=== PATIENT | female | born 1950 | race African-American/Black ===

== ENCOUNTER 2020-11-21 17:04 | Inpatient (IN) | payer BC, OTHER ==
[2020-11-21] MEDS ORDERED: ACETAMINOPHEN 1000 MG/100 ML VIAL (NON FORMULARY) IVPB ONE (17:58)
[2020-11-21] MEDS ORDERED: ASPIRIN 81 MG CHEWABLE TABLETS PO ONE (17:58)
[2020-11-21] MEDS ORDERED: SODIUM CHLORIDE 0.9% 500 ML INFUS.BAG IV ONE (17:58)
[2020-11-21] MEDS ORDERED: ACETAMINOPHEN INJECTION 100 ML IVPB ONE (18:23)
[2020-11-21] MEDS ORDERED: ASPIRIN 81 MG CHEWABLE TABLETS ONE (18:23)
[2020-11-21 19:03] LABS: BASO % 0.5 % (0-2.0); EOS % 0.1 % (0-4.5); HEMOGLOBIN 10.7 GM/dL (10.7-15.3); LYMPH % 26.3 % (8-40); MCH 29.5 pg (25.7-33.7); MCHC 32.3 g/dl (32.0-36.0); MEAN CELL VOLUME 91.2 fl (80-96); MEAN PLT VOLUME 9.9 fl (7.5-11.1); MONO % 13.6 % (3.8-10.2); NEUT % 59.5 % (42.8-82.8); PLATELET COUNT 161 K/MM3 (134-434); RBC 3.62 M/mm3 (3.60-5.2); WHITE BLOOD COUNT 5.4 K/mm3 (4.0-10.0)
[2020-11-21 19:20] LABS: CHLORIDE 106 mmol/L (98-107); POTASSIUM 5.2 mmol/L (3.5-5.1); SODIUM 138 mmol/L (136-145)
[2020-11-21 19:22] LABS: CALCIUM 8.5 mg/dL (8.5-10.1)
[2020-11-21 19:23] LABS: ALBUMIN 3.7 g/dl (3.4-5.0); ANION GAP 3 MMOL/L (8-16); CO2 30 mmol/L (21-32); GLUCOSE,RANDOM 178 mg/dL (74-106); LIPASE 151 U/L (73-393)
[2020-11-21 19:26] LABS: CREATININE 1.7 mg/dL (0.55-1.3); SGOT/AST 50 U/L (15-37); SGPT/ALT 26 U/L (13-61)
[2020-11-21 19:27] LABS: BILIRUBIN,TOTAL 0.5 mg/dL (0.2-1)
[2020-11-21 19:29] LABS: ALK PHOS 54 U/L (45-117)
[2020-11-21 20:30] LABS: EPI CELLS 24 /uL (0-25.1); HYALINE CASTS 1 /uL (0-3.1); URINE APPEARANCE CLEAR; URINE BACTERIA 362 /uL (0-1359); URINE BILIRUBIN NEGATIVE (NEGATIVE); URINE COLOR YELLOW; URINE GLUCOSE (UA) NEGATIVE (NEGATIVE); URINE KETONE TRACE (NEGATIVE); URINE LEUK ESTERASE TRACE (NEGATIVE); URINE NITRITE NEGATIVE (NEGATIVE); URINE PROTEIN 3+ (NEGATIVE); URINE RBC 12 /uL (0-23.9); URINE WBC 23 /uL (0-25.8)
[2020-11-22] MEDS ORDERED: SODIUM CHLORIDE 1,000 ML IV SCH ×2 (00:30→06:56)
[2020-11-22] MEDS ORDERED: HEPARIN NA (PORCINE) 5,000 UNITS/ML 1ML VIAL SQ SCH (02:00)
[2020-11-22] MEDS ORDERED: HEPARIN NA (PORCINE) 5,000 UNITS/ML 1ML VIAL ONE (02:28)
[2020-11-22 04:42] VITALS: BMI 32.8
[2020-11-22] MEDS: INSULIN SLIDING SCALE (NOVOLOG) 1 VIAL SQ SCH ×4 (06:37→21:50)
[2020-11-22] MEDS ORDERED: SODIUM CHLORIDE 500 ML IV STA (06:55)
[2020-11-22 09:13] LABS: BASO % 0.4 % (0-2.0); EOS % 0.1 % (0-4.5); HEMATOCRIT 31.3 % (32.4-45.2); HEMOGLOBIN 10.3 GM/dL (10.7-15.3); LYMPH % 36.2 % (8-40); MCH 30.1 pg (25.7-33.7); MEAN CELL VOLUME 91.2 fl (80-96); MONO % 13.3 % (3.8-10.2); PLATELET COUNT 139 K/MM3 (134-434); RBC 3.43 M/mm3 (3.60-5.2); RDW 14.1 % (11.6-15.6); WHITE BLOOD COUNT 4.4 K/mm3 (4.0-10.0)
[2020-11-22 09:32] LABS: CALCIUM 8.5 mg/dL (8.5-10.1)
[2020-11-22 09:33] LABS: ALBUMIN 3.4 g/dl (3.4-5.0); BLOOD UREA NITROGEN 22.4 mg/dL (7-18)
[2020-11-22 09:36] LABS: CREATININE 1.4 mg/dL (0.55-1.3); PHOSPHOROUS 3.7 mg/dL (2.5-4.9)
[2020-11-22 09:38] LABS: BILIRUBIN,TOTAL 0.4 mg/dL (0.2-1); TOT PROT 7.4 g/dl (6.4-8.2)
[2020-11-22] MEDS ORDERED: DEXAMETHASONE SOD PHOSPHATE 4 MG/1 ML VIAL IVPUSH SCH (10:00)
[2020-11-22] MEDS ORDERED: CEFTRIAXONE 1 GM in DEXTROSE 5%-WATER - 50 ML IVPB SCH (10:00)
[2020-11-22] MEDS ORDERED: cefTRIAXone SODIUM 1 GM VIAL ONE (10:47)
[2020-11-22] MEDS ORDERED: DEXTROSE 5%-WATER - 50 ML IVPB ONE (10:47)
[2020-11-22] MEDS ORDERED: PT OWN MED DRAWER 7, Y5N ONE (10:48)
[2020-11-22] MEDS: HEPARIN NA (PORCINE) 5,000 UNITS/ML 1ML VIAL SQ SCH ×3 (10:55→21:50)
[2020-11-22] MEDS: ZINC SULFATE 220 MG CAPSULE (FP) PO SCH (10:56)
[2020-11-22] MEDS: CHOLECALCIFEROL (VIT D3) 1,000 UNIT (25 MCG) TABLET PO SCH (10:56)
[2020-11-22] MEDS: ASCORBIC ACID 500 MG TABLET (FP) PO SCH ×2 (10:56→21:51)
[2020-11-22] MEDS: FAMOTIDINE 20 MG/50 ML IVPB 20 MG/50 ML MG IVPB SCH ×2 (10:59→21:51)
[2020-11-22] MEDS ORDERED: INSULIN (NOVOLOG) ASPART 100 UNITS/ML 10ML VIAL ONE ×2 (14:36→14:37)
[2020-11-22] MEDS ORDERED: SODIUM CHLORIDE 0.45% 1,000 ML IV SCH (15:45)
[2020-11-22] MEDS: ACETAMINOPHEN 325 MG TABLET (FP) PO PRN (22:26)
[2020-11-23] MEDS: HEPARIN NA (PORCINE) 5,000 UNITS/ML 1ML VIAL SQ SCH ×3 (06:25→21:06)
[2020-11-23] MEDS: INSULIN SLIDING SCALE (NOVOLOG) 1 VIAL SQ SCH ×4 (06:26→21:12)
[2020-11-23 07:57] LABS: BASO % 0.3 % (0-2.0); EOS % 0.1 % (0-4.5); HEMATOCRIT 30.8 % (32.4-45.2); HEMOGLOBIN 10.1 GM/dL (10.7-15.3); LYMPH % 51.9 % (8-40); MCH 29.7 pg (25.7-33.7); MCHC 32.6 g/dl (32.0-36.0); MONO % 9.8 % (3.8-10.2); NEUT % 37.9 % (42.8-82.8); PLATELET COUNT 136 K/MM3 (134-434); RBC 3.38 M/mm3 (3.60-5.2); RDW 14.2 % (11.6-15.6); WHITE BLOOD COUNT 4.9 K/mm3 (4.0-10.0)
[2020-11-23] MEDS: FAMOTIDINE 20 MG/50 ML IVPB 20 MG/50 ML MG IVPB SCH ×2 (10:03→21:51)
[2020-11-23] MEDS: ASCORBIC ACID 500 MG TABLET (FP) PO SCH ×2 (10:04→21:06)
[2020-11-23] MEDS: ZINC SULFATE 220 MG CAPSULE (FP) PO SCH (10:04)
[2020-11-23] MEDS: CHOLECALCIFEROL (VIT D3) 1,000 UNIT (25 MCG) TABLET PO SCH (10:04)
[2020-11-23 10:34] LABS: BLOOD UREA NITROGEN 25.7 mg/dL (7-18); CALCIUM 8.2 mg/dL (8.5-10.1)
[2020-11-23 10:37] LABS: CREATININE 1.5 mg/dL (0.55-1.3); PHOSPHOROUS 4.2 mg/dL (2.5-4.9)
[2020-11-23 10:38] LABS: BILIRUBIN,TOTAL 0.4 mg/dL (0.2-1)
[2020-11-23] MEDS: ACETAMINOPHEN 325 MG TABLET (FP) PO PRN ×2 (15:10→20:19)
[2020-11-23] MEDS: SODIUM CHLORIDE 0.45% 1,000 ML IV SCH (15:10)
[2020-11-23 20:48] LABS: EPI CELLS 3 /uL (0-25.1); HYALINE CASTS 1 /uL (0-3.1); URINE APPEARANCE CLEAR; URINE BACTERIA 24 /uL (0-1359); URINE BILIRUBIN NEGATIVE (NEGATIVE); URINE COLOR YELLOW; URINE GLUCOSE (UA) NEGATIVE (NEGATIVE); URINE KETONE NEGATIVE (NEGATIVE); URINE LEUK ESTERASE NEGATIVE (NEGATIVE); URINE NITRITE NEGATIVE (NEGATIVE); URINE PROTEIN 2+ (NEGATIVE); URINE RBC 9 /uL (0-23.9); URINE UROBILINOGEN 0.2 mg/dL (0.2-1.0); URINE WBC 3 /uL (0-25.8)
[2020-11-24] MEDS: HEPARIN NA (PORCINE) 5,000 UNITS/ML 1ML VIAL SQ SCH ×3 (05:05→21:02)
[2020-11-24] MEDS: ACETAMINOPHEN 325 MG TABLET (FP) PO PRN (06:09)
[2020-11-24] MEDS: INSULIN SLIDING SCALE (NOVOLOG) 1 VIAL SQ SCH ×4 (06:16→21:00)
[2020-11-24] MEDS ORDERED: PT OWN MED DRAWER 7, Y5N ONE ×4 (09:21→22:41)
[2020-11-24] MEDS: ZINC SULFATE 220 MG CAPSULE (FP) PO SCH (09:24)
[2020-11-24] MEDS: FAMOTIDINE 20 MG/50 ML IVPB 20 MG/50 ML MG IVPB SCH ×2 (09:25→21:02)
[2020-11-24] MEDS: ASCORBIC ACID 500 MG TABLET (FP) PO SCH ×2 (09:25→21:04)
[2020-11-24] MEDS: CHOLECALCIFEROL (VIT D3) 1,000 UNIT (25 MCG) TABLET PO SCH (09:25)
[2020-11-24] MEDS: DEXAMETHASONE SOD PHOSPHATE 4 MG/1 ML VIAL IVPUSH SCH (11:15)
[2020-11-24 17:21] LABS: BLOOD UREA NITROGEN 23.6 mg/dL (7-18); CALCIUM 7.9 mg/dL (8.5-10.1); CREATININE 1.6 mg/dL (0.55-1.3); POTASSIUM 5.2 mmol/L (3.5-5.1)
[2020-11-24] MEDS: SODIUM CHLORIDE 0.45% 1,000 ML IV SCH ×2 (17:39→17:40)
[2020-11-24] MEDS ORDERED: SODIUM ZIRCONIUM CYCLOSILICATE (LOKELMA) 5 GM PACKET PO ONE (17:42)
[2020-11-24] MEDS ORDERED: INSULIN (NOVOLOG) ASPART 100 UNITS/ML 10ML VIAL ONE ×2 (17:43→20:23)
[2020-11-24] MEDS ORDERED: guaiFENesin/D-M SUGAR-FREE/ACLHOL-FREE 118 ML BOTTLE PO PRN (21:42)
[2020-11-24] MEDS ORDERED: BENZOCAINE/MENTH/CETYLPYRD CL 1 EACH LOZENGE MM PRN (21:42)
[2020-11-25] MEDS: INSULIN SLIDING SCALE (NOVOLOG) 1 VIAL SQ SCH ×3 (06:22→16:21)
[2020-11-25] MEDS: HEPARIN NA (PORCINE) 5,000 UNITS/ML 1ML VIAL SQ SCH ×2 (06:23→14:19)
[2020-11-25] MEDS ORDERED: PT OWN MED DRAWER 7, Y5N ONE (09:05)
[2020-11-25] MEDS: ACETAMINOPHEN 325 MG TABLET (FP) PO PRN (09:08)
[2020-11-25] MEDS: ASCORBIC ACID 500 MG TABLET (FP) PO SCH (09:09)
[2020-11-25] MEDS: FAMOTIDINE 20 MG/50 ML IVPB 20 MG/50 ML MG IVPB SCH (09:09)
[2020-11-25] MEDS: CHOLECALCIFEROL (VIT D3) 1,000 UNIT (25 MCG) TABLET PO SCH (09:09)
[2020-11-25] MEDS: ZINC SULFATE 220 MG CAPSULE (FP) PO SCH (09:09)
[2020-11-25] MEDS: DEXAMETHASONE SOD PHOSPHATE 4 MG/1 ML VIAL IVPUSH SCH (09:10)
[2020-11-25] MEDS ORDERED: BUDESONIDE/FORMETEROL FUMARATE 160/4.5 mcg INHALER IH SCH (10:45)
[2020-11-25] MEDS: ALBUTEROL SO4 HFA INHALER IH SCH ×2 (11:37→16:14)
[2020-11-25 13:32] LABS: BLOOD UREA NITROGEN 22.7 mg/dL (7-18); CALCIUM 8.4 mg/dL (8.5-10.1); CREATININE 1.4 mg/dL (0.55-1.3); POTASSIUM 4.8 mmol/L (3.5-5.1)
[2020-11-25 15:47] VITALS: BP 130/65; PULSE 72; TEMP 98.1
[2020-11-25] MEDS: SODIUM CHLORIDE 0.45% 1,000 ML IV SCH (16:50)
[2020-11-25] MEDS ORDERED: SODIUM ZIRCONIUM CYCLOSILICATE (LOKELMA) 5 GM PACKET PO ONE (17:49)
== END 2020-11-25 17:48 | disposition home or self-care (01) | DRG 177 ==
LOC: JER 17:04 → JERBED 21:43 → OBSVTOIN 11-22 00:20 → J8W 11-22 04:05
PROVIDERS: ADMIT Internal Medicine; ATTEND Internal Medicine
DX: U07.1 COVID-19 (principal); J12.82 Pneumonia due to coronavirus disease 2019; N17.9 Acute kidney failure, unspecified; K21.9 Gastro-esophageal reflux disease without esophagitis; I12.9 Hypertensive chronic kidney disease with stage 1 through stage 4 chronic kidney disease, or unspecified chronic kidney disease; E11.22 Type 2 diabetes mellitus with diabetic chronic kidney disease; N18.9 Chronic kidney disease, unspecified; S46.812A Strain of other muscles, fascia and tendons at shoulder and upper arm level, left arm, initial encounter; E66.9 Obesity, unspecified; Z68.32 Body mass index [BMI] 32.0-32.9, adult; Z79.84 Long term (current) use of oral hypoglycemic drugs; E78.5 Hyperlipidemia, unspecified; E86.0 Dehydration; E87.5 Hyperkalemia; F32.9 Major depressive disorder, single episode, unspecified; X50.9XXA Other and unspecified overexertion or strenuous movements or postures, initial encounter; Y93.89 Activity, other specified; Y92.098 Other place in other non-institutional residence as the place of occurrence of the external cause; Y99.8 Other external cause status; R07.89 Other chest pain
CPT/HCPCS: 36415; 71045-TC-FY; 74176-TC; 76775-TC; 80048; 80053; 81003; 82550; 82565; 82728; 82962; 83605; 83615; 83690; 83735; 84100; 84156; 84484; 85025; 85379; 86140; 86769; 87040; 87086; 93970-TC; 94761; 99285-25; C9803; G0378; J0131; J1644; U0003

== ENCOUNTER 2020-11-29 17:25 | Inpatient (IN) | payer BC, OTHER ==
[2020-11-29 17:47] VITALS: BMI 32.5
[2020-11-29] MEDS ORDERED: SODIUM CHLORIDE 0.9% 500 ML INFUS.BAG IV ONE ×2 (18:08→20:54)
[2020-11-29] MEDS ORDERED: DEXAMETHASONE SOD PHOSPHATE 10 MG/1 ML VIAL IVPUSH ONE (18:11)
[2020-11-29] MEDS ORDERED: DEXAMETHASONE SOD PHOSPHATE 10 MG/1 ML VIAL ONE (18:22)
[2020-11-29 18:49] LABS: VENOUS BASE EXCESS -4.7 mmol/L (-2-2); VENOUS O2 SATURATION 26.4 % (70-80); VENOUS PCO2 47.6 mmHg (38-52); VENOUS PH 7.285 (7.310-7.410)
[2020-11-29 19:03] LABS: BASO % 0.8 % (0-2.0); HEMOGLOBIN 12.2 GM/dL (10.7-15.3); LYMPH % 9.5 % (8-40); MCH 29.5 pg (25.7-33.7); MCHC 32.1 g/dl (32.0-36.0); MEAN CELL VOLUME 91.9 fl (80-96); MEAN PLT VOLUME 11.8 fl (7.5-11.1); NEUT % 82.7 % (42.8-82.8); PLATELET COUNT 493 K/MM3 (134-434); RBC 4.14 M/mm3 (3.60-5.2); RDW 15.2 % (11.6-15.6); WHITE BLOOD COUNT 11.7 K/mm3 (4.0-10.0)
[2020-11-29 19:04] LABS: INR 1.01 (0.83-1.09); PROTHROMBIN TIME (PATIENT) 12.2 SEC (9.7-13.0)
[2020-11-29 19:06] LABS: ACTIVATED PTT 24.6 SECONDS (25.2-36.5)
[2020-11-29 19:12] LABS: CHLORIDE 98 mmol/L (98-107); SODIUM 132 mmol/L (136-145)
[2020-11-29 19:14] LABS: CALCIUM 9.3 mg/dL (8.5-10.1)
[2020-11-29 19:15] LABS: CO2 23 mmol/L (21-32)
[2020-11-29 19:18] LABS: SGOT/AST 25 U/L (15-37); SGPT/ALT 14 U/L (13-61)
[2020-11-29 19:19] LABS: BILIRUBIN,TOTAL 0.7 mg/dL (0.2-1)
[2020-11-29 19:21] LABS: ALK PHOS 60 U/L (45-117)
[2020-11-29 19:26] LABS: ANION GAP 10 MMOL/L (8-16); BLOOD UREA NITROGEN 54.9 mg/dL (7-18)
[2020-11-29 19:28] LABS: GLUCOSE,RANDOM 630 mg/dL (74-106)
[2020-11-29] MEDS ORDERED: INSULIN REGULAR HUMAN 100 UNITS/ML *VIAL SQ ONE ×3 (19:36→23:39)
[2020-11-29 20:25] LABS: CALCIUM 9.2 mg/dL (8.5-10.1)
[2020-11-29 20:26] LABS: ALBUMIN 2.8 g/dl (3.4-5.0); BLOOD UREA NITROGEN 53.4 mg/dL (7-18)
[2020-11-29 20:29] LABS: CREATININE 1.9 mg/dL (0.55-1.3)
[2020-11-29 20:30] LABS: BILIRUBIN,TOTAL 0.6 mg/dL (0.2-1); TOT PROT 8.4 g/dl (6.4-8.2)
[2020-11-29 20:36] LABS: POTASSIUM 6.8 mmol/L (3.5-5.1)
[2020-11-29] MEDS ORDERED: CALCIUM GLUCONATE 10% - 1,000 MG/10 ML VIAL IVPB ONE ×2 (20:54→23:39)
[2020-11-29] MEDS ORDERED: FUROSEMIDE 40 MG/4 ML INJECTABLE VIAL IVPUSH ONE (20:54)
[2020-11-29] MEDS ORDERED: SODIUM ZIRCONIUM CYCLOSILICATE (LOKELMA) 5 GM PACKET PO ONE (20:55)
[2020-11-29] MEDS ORDERED: ALBUTEROL SO4 0.083% IH SOL 2.5 MG/3 ML VIAL.NEB. NEB ONE ×2 (20:55→21:42)
[2020-11-29 21:00] LABS: EPI CELLS 16 /uL (0-25.1); HYALINE CASTS 1 /uL (0-3.1); URINE APPEARANCE CLEAR; URINE BACTERIA 150 /uL (0-1359); URINE BILIRUBIN NEGATIVE (NEGATIVE); URINE COLOR YELLOW; URINE GLUCOSE (UA) 3+ (NEGATIVE); URINE KETONE NEGATIVE (NEGATIVE); URINE LEUK ESTERASE NEGATIVE (NEGATIVE); URINE NITRITE NEGATIVE (NEGATIVE); URINE PROTEIN 3+ (NEGATIVE); URINE RBC 21 /uL (0-23.9); URINE UROBILINOGEN 0.2 mg/dL (0.2-1.0); URINE WBC 4 /uL (0-25.8)
[2020-11-29] MEDS ORDERED: SODIUM ZIRCONIUM CYCLOSILICATE (LOKELMA) 5 GM PACKET ONE (21:43)
[2020-11-29] MEDS ORDERED: FUROSEMIDE 40 MG/4 ML INJECTABLE VIAL ONE (21:43)
[2020-11-29] MEDS ORDERED: CALCIUM GLUC IN NACL, ISO-OSM 1 GM/50 ML BAG IVPB ONE (21:43)
[2020-11-29] MEDS ORDERED: INSULIN REGULAR HUMAN 100 UNITS/ML *VIAL ONE (21:57)
[2020-11-29] MEDS ORDERED: DEXTROSE 50%-WATER - 25 GM/50 ML VIAL IVPUSH ONE (23:40)
[2020-11-30] MEDS ORDERED: LABETALOL HCL 5 MG/1 ML (100MG/20 ML VIAL) IVPUSH PRN (00:26)
[2020-11-30] MEDS ORDERED: FAMOTIDINE 20 MG TABLET PO SCH (00:45)
[2020-11-30] MEDS ORDERED: INSULIN REGULAR HUMAN 100 UNITS/ML *VIAL SQ ONE (03:03)
[2020-11-30] MEDS ORDERED: INSULIN REGULAR HUMAN 100 UNITS/ML *VIAL IVPUSH ONE ×2 (03:03→10:00)
[2020-11-30] MEDS ORDERED: DEXTROSE 50%-WATER - 25 GM/50 ML VIAL IVPUSH ONE ×2 (03:04→10:00)
[2020-11-30] MEDS ORDERED: CALCIUM GLUCONATE IN NACL 1 GM/50 ML BAG IVPB ONE ×2 (03:04→10:00)
[2020-11-30] MEDS ORDERED: SODIUM ZIRCONIUM CYCLOSILICATE (LOKELMA) 5 GM PACKET PO ONE (03:06)
[2020-11-30] MEDS ORDERED: SODIUM ZIRCONIUM CYCLOSILICATE (LOKELMA) 5 GM PACKET ONE ×2 (03:13→10:17)
[2020-11-30] MEDS ORDERED: DEXTROSE 50%-WATER 25 GM/50 ML DISP.SYRIN ONE (03:13)
[2020-11-30] MEDS ORDERED: CALCIUM GLUC IN NACL, ISO-OSM 1 GM/50 ML BAG IVPB ONE ×2 (03:13→10:16)
[2020-11-30] MEDS: HEPARIN NA (PORCINE) 5,000 UNITS/ML 1ML VIAL SQ SCH ×3 (06:07→22:44)
[2020-11-30] MEDS ORDERED: HEPARIN NA (PORCINE) 5,000 UNITS/ML 1ML VIAL ONE ×2 (06:11→14:27)
[2020-11-30 06:46] LABS: BASO % 0.4 % (0-2.0); EOS % 0.1 % (0-4.5); HEMATOCRIT 36.6 % (32.4-45.2); HEMOGLOBIN 12.1 GM/dL (10.7-15.3); LYMPH % 10.5 % (8-40); MCH 29.8 pg (25.7-33.7); MCHC 33.1 g/dl (32.0-36.0); MEAN CELL VOLUME 90.2 fl (80-96); MEAN PLT VOLUME 10.5 fl (7.5-11.1); MONO % 8.2 % (3.8-10.2); NEUT % 80.8 % (42.8-82.8); PLATELET COUNT 429 K/MM3 (134-434); RBC 4.06 M/mm3 (3.60-5.2); RDW 14.5 % (11.6-15.6); WHITE BLOOD COUNT 9.2 K/mm3 (4.0-10.0)
[2020-11-30] MEDS ORDERED: INSULIN SLIDING SCALE (NOVOLOG) 1 VIAL SQ SCH ×2 (07:00→09:45)
[2020-11-30 07:19] LABS: ALBUMIN 2.8 g/dl (3.4-5.0); BILIRUBIN,TOTAL 0.6 mg/dL (0.2-1); CALCIUM 9.5 mg/dL (8.5-10.1); CREATININE 1.9 mg/dL (0.55-1.3); MAGNESIUM 2.8 mg/dL (1.8-2.4); PHOSPHOROUS 5.9 mg/dL (2.5-4.9); TOT PROT 8.6 g/dl (6.4-8.2)
[2020-11-30 07:44] LABS: POTASSIUM 6.5 mmol/L (3.5-5.1)
[2020-11-30 08:35] LABS: INR 1.02 (0.83-1.09); PROTHROMBIN TIME (PATIENT) 12.5 SEC (9.7-13.0)
[2020-11-30] MEDS ORDERED: amLODIPine BESYLATE 5 MG TABLET (FP) ONE (09:27)
[2020-11-30] MEDS ORDERED: FAMOTIDINE 20 MG TABLET ONE (09:27)
[2020-11-30] MEDS ORDERED: DEXAMETHASONE SOD PHOSPHATE 4 MG/1 ML VIAL ONE (09:27)
[2020-11-30] MEDS ORDERED: ESCITALOPRAM OXALATE 10 MG TABLET ONE (09:27)
[2020-11-30] MEDS ORDERED: FUROSEMIDE 40 MG/4 ML INJECTABLE VIAL IVPUSH ONE (09:29)
[2020-11-30] MEDS ORDERED: CALCIUM CHLORIDE 10% 1 GM/10 ML *VIAL IVPUSH ONE (09:30)
[2020-11-30 09:54] LABS: ANISOCYTOSIS 1+; MACROCYTOSIS 0; OVALOCYTE 1+; PLATELET ESTIMATE NORMAL
[2020-11-30] MEDS ORDERED: SODIUM ZIRCONIUM CYCLOSILICATE (LOKELMA) 5 GM PACKET PO SCH (10:00)
[2020-11-30] MEDS ORDERED: DEXTROSE 50%-WATER - 25 GM/50 ML VIAL ONE (10:16)
[2020-11-30] MEDS ORDERED: FUROSEMIDE 40 MG/4 ML INJECTABLE VIAL ONE (10:17)
[2020-11-30] MEDS: DEXAMETHASONE SOD PHOSPHATE 10 MG/1 ML VIAL IVPUSH SCH (10:55)
[2020-11-30] MEDS: ESCITALOPRAM OXALATE 10 MG TABLET PO SCH (10:55)
[2020-11-30] MEDS: amLODIPine BESYLATE 5 MG TABLET (FP) PO SCH (10:55)
[2020-11-30] MEDS: FAMOTIDINE 20 MG TABLET PO SCH (10:55)
[2020-11-30] MEDS ORDERED: INSULIN (NOVOLOG) ASPART 100 UNITS/ML 10ML VIAL SQ ONE ×2 (12:16→14:38)
[2020-11-30] MEDS: INSULIN SLIDING SCALE (NOVOLOG) 1 VIAL SQ SCH ×2 (12:21→19:41)
[2020-11-30] MEDS ORDERED: ALBUTEROL SO4 HFA INHALER IH PRN (12:26)
[2020-11-30] MEDS: BUDESONIDE/FORMETEROL FUMARATE 80/4.5 mcg INHALER IH SCH ×2 (13:06→22:45)
[2020-11-30 15:38] LABS: POTASSIUM 5.8 mmol/L (3.5-5.1)
[2020-11-30 15:39] LABS: BLOOD UREA NITROGEN 53.9 mg/dL (7-18); CALCIUM 9.8 mg/dL (8.5-10.1)
[2020-11-30 15:42] LABS: CREATININE 1.5 mg/dL (0.55-1.3)
[2020-11-30] MEDS ORDERED: TOCILIZUMAB (ACTEMRA) 200 MG/10 ML VIAL IVPB ONE ×2 (16:45)
[2020-11-30] MEDS ORDERED: SODIUM CHLORIDE IVPB ONE (17:15)
[2020-11-30] MEDS ORDERED: TOCILIZUMAB IVPB ONE (17:15)
[2020-11-30] MEDS: SODIUM CHLORIDE 0.45% 1,000 ML IV SCH (17:55)
[2020-11-30 22:25] LABS: CALCIUM 9.7 mg/dL (8.5-10.1)
[2020-11-30 22:26] LABS: BLOOD UREA NITROGEN 56.1 mg/dL (7-18)
[2020-11-30 22:29] LABS: CREATININE 1.7 mg/dL (0.55-1.3)
[2020-11-30 22:38] LABS: POTASSIUM 6.2 mmol/L (3.5-5.1)
[2020-11-30] MEDS: SODIUM ZIRCONIUM CYCLOSILICATE (LOKELMA) 5 GM PACKET PO SCH (22:44)
[2020-11-30] MEDS: ASCORBIC ACID 500 MG TABLET (FP) PO SCH (22:45)
[2020-12-01] MEDS: INSULIN SLIDING SCALE (NOVOLOG) 1 VIAL SQ SCH ×4 (00:57→17:49)
[2020-12-01] MEDS: HEPARIN NA (PORCINE) 5,000 UNITS/ML 1ML VIAL SQ SCH ×3 (06:09→22:01)
[2020-12-01 10:39] LABS: BASO % 0.5 % (0-2.0); EOS % 0.2 % (0-4.5); HEMATOCRIT 36.9 % (32.4-45.2); HEMOGLOBIN 12.3 GM/dL (10.7-15.3); LYMPH % 19.5 % (8-40); MCH 29.8 pg (25.7-33.7); MCHC 33.4 g/dl (32.0-36.0); MEAN CELL VOLUME 89.2 fl (80-96); MONO % 4.5 % (3.8-10.2); NEUT % 75.3 % (42.8-82.8); PLATELET COUNT 488 K/MM3 (134-434); RBC 4.13 M/mm3 (3.60-5.2); RDW 14.2 % (11.6-15.6); WHITE BLOOD COUNT 9.3 K/mm3 (4.0-10.0)
[2020-12-01] MEDS: CHOLECALCIFEROL (VIT D3) 1,000 UNIT (25 MCG) TABLET PO SCH (10:44)
[2020-12-01] MEDS: DEXAMETHASONE SOD PHOSPHATE 10 MG/1 ML VIAL IVPUSH SCH (10:44)
[2020-12-01] MEDS: ZINC SULFATE 220 MG CAPSULE (FP) PO SCH (10:45)
[2020-12-01] MEDS: ASCORBIC ACID 500 MG TABLET (FP) PO SCH ×2 (10:45→22:03)
[2020-12-01] MEDS: amLODIPine BESYLATE 5 MG TABLET (FP) PO SCH (10:45)
[2020-12-01] MEDS: FAMOTIDINE 20 MG TABLET PO SCH (10:46)
[2020-12-01 11:07] LABS: POTASSIUM 5.4 mmol/L (3.5-5.1)
[2020-12-01] MEDS: BUDESONIDE/FORMETEROL FUMARATE 80/4.5 mcg INHALER IH SCH ×2 (11:12→22:02)
[2020-12-01 11:14] LABS: ALBUMIN 2.7 g/dl (3.4-5.0); CALCIUM 9.3 mg/dL (8.5-10.1)
[2020-12-01 11:15] LABS: MAGNESIUM 2.4 mg/dL (1.8-2.4)
[2020-12-01 11:18] LABS: CREATININE 1.5 mg/dL (0.55-1.3)
[2020-12-01 11:19] LABS: BILIRUBIN,TOTAL 0.6 mg/dL (0.2-1); TOT PROT 8.2 g/dl (6.4-8.2)
[2020-12-01] MEDS: SODIUM ZIRCONIUM CYCLOSILICATE (LOKELMA) 5 GM PACKET PO SCH ×2 (12:04→22:02)
[2020-12-01] MEDS: ESCITALOPRAM OXALATE 10 MG TABLET PO SCH (12:34)
[2020-12-01] MEDS: SODIUM CHLORIDE 0.45% 1,000 ML IV SCH (16:07)
[2020-12-01 17:25] LABS: BLOOD UREA NITROGEN 55.5 mg/dL (7-18); CALCIUM 8.8 mg/dL (8.5-10.1); CREATININE 1.6 mg/dL (0.55-1.3)
[2020-12-01 19:27] LABS: POTASSIUM 7.1 mmol/L (3.5-5.1)
[2020-12-01 20:00] LABS: BLOOD UREA NITROGEN 55.1 mg/dL (7-18); CALCIUM 8.8 mg/dL (8.5-10.1)
[2020-12-01 20:04] LABS: CREATININE 1.6 mg/dL (0.55-1.3)
[2020-12-02] MEDS: INSULIN SLIDING SCALE (NOVOLOG) 1 VIAL SQ SCH ×5 (06:12→21:30)
[2020-12-02] MEDS: HEPARIN NA (PORCINE) 5,000 UNITS/ML 1ML VIAL SQ SCH ×3 (06:13→21:29)
[2020-12-02 08:43] LABS: BASO % 0.4 % (0-2.0); EOS % 1.4 % (0-4.5); HEMATOCRIT 36.8 % (32.4-45.2); HEMOGLOBIN 12.3 GM/dL (10.7-15.3); LYMPH % 20.2 % (8-40); MCH 29.7 pg (25.7-33.7); MCHC 33.4 g/dl (32.0-36.0); MEAN CELL VOLUME 88.8 fl (80-96); MEAN PLT VOLUME 9.5 fl (7.5-11.1); MONO % 3.4 % (3.8-10.2); NEUT % 74.6 % (42.8-82.8); PLATELET COUNT 509 K/MM3 (134-434); RBC 4.14 M/mm3 (3.60-5.2); RDW 14.2 % (11.6-15.6); WHITE BLOOD COUNT 9.3 K/mm3 (4.0-10.0)
[2020-12-02 09:21] LABS: CALCIUM 8.8 mg/dL (8.5-10.1); MAGNESIUM 2.4 mg/dL (1.8-2.4)
[2020-12-02 09:23] LABS: ALBUMIN 2.6 g/dl (3.4-5.0)
[2020-12-02 09:26] LABS: CREATININE 1.3 mg/dL (0.55-1.3)
[2020-12-02 09:27] LABS: BILIRUBIN,TOTAL 0.7 mg/dL (0.2-1); TOT PROT 7.7 g/dl (6.4-8.2)
[2020-12-02] MEDS: CHOLECALCIFEROL (VIT D3) 1,000 UNIT (25 MCG) TABLET PO SCH (09:53)
[2020-12-02] MEDS: ZINC SULFATE 220 MG CAPSULE (FP) PO SCH (09:53)
[2020-12-02] MEDS: BUDESONIDE/FORMETEROL FUMARATE 80/4.5 mcg INHALER IH SCH ×2 (09:54→21:32)
[2020-12-02] MEDS: amLODIPine BESYLATE 5 MG TABLET (FP) PO SCH (09:54)
[2020-12-02] MEDS: ESCITALOPRAM OXALATE 10 MG TABLET PO SCH (09:54)
[2020-12-02] MEDS: DEXAMETHASONE SOD PHOSPHATE 10 MG/1 ML VIAL IVPUSH SCH (09:54)
[2020-12-02] MEDS: FAMOTIDINE 20 MG TABLET PO SCH (09:54)
[2020-12-02] MEDS: ASCORBIC ACID 500 MG TABLET (FP) PO SCH ×2 (09:54→21:28)
[2020-12-02 10:57] LABS: ANISOCYTOSIS 1+; MACROCYTOSIS 1+; PLATELET ESTIMATE INCREASED
[2020-12-02] MEDS: SODIUM ZIRCONIUM CYCLOSILICATE (LOKELMA) 5 GM PACKET PO SCH ×2 (12:38→21:29)
[2020-12-02] MEDS ORDERED: SODIUM CHLORIDE 0.45% 1,000 ML IV SCH (15:08)
[2020-12-02 17:35] LABS: POTASSIUM 5.5 mmol/L (3.5-5.1)
[2020-12-02 17:36] LABS: CALCIUM 8.7 mg/dL (8.5-10.1)
[2020-12-02] MEDS ORDERED: INSULIN SLIDING SCALE (NOVOLOG) 1 VIAL SQ SCH (17:39)
[2020-12-02 17:40] LABS: CREATININE 1.6 mg/dL (0.55-1.3)
[2020-12-02] MEDS: INSULIN (LEVEMIR) 100 UNITS/ML UNITS SQ SCH (21:28)
[2020-12-03] MEDS: HEPARIN NA (PORCINE) 5,000 UNITS/ML 1ML VIAL SQ SCH ×3 (06:54→21:59)
[2020-12-03] MEDS: INSULIN SLIDING SCALE (NOVOLOG) 1 VIAL SQ SCH ×4 (06:54→21:59)
[2020-12-03 07:44] LABS: BASO % 1.2 % (0-2.0); EOS % 1.4 % (0-4.5); HEMATOCRIT 36.4 % (32.4-45.2); HEMOGLOBIN 12.2 GM/dL (10.7-15.3); LYMPH % 19.4 % (8-40); MCH 29.7 pg (25.7-33.7); MCHC 33.5 g/dl (32.0-36.0); MEAN CELL VOLUME 88.6 fl (80-96); MEAN PLT VOLUME 9.6 fl (7.5-11.1); MONO % 1.9 % (3.8-10.2); NEUT % 76.1 % (42.8-82.8); PLATELET COUNT 497 K/MM3 (134-434); RBC 4.11 M/mm3 (3.60-5.2); RDW 14.2 % (11.6-15.6); WHITE BLOOD COUNT 9.5 K/mm3 (4.0-10.0)
[2020-12-03 08:00] LABS: POTASSIUM 4.7 mmol/L (3.5-5.1)
[2020-12-03 08:03] LABS: ALBUMIN 2.6 g/dl (3.4-5.0); BLOOD UREA NITROGEN 46.1 mg/dL (7-18); MAGNESIUM 2.4 mg/dL (1.8-2.4)
[2020-12-03 08:06] LABS: CREATININE 1.4 mg/dL (0.55-1.3)
[2020-12-03 08:08] LABS: BILIRUBIN,TOTAL 1.1 mg/dL (0.2-1); TOT PROT 7.6 g/dl (6.4-8.2)
[2020-12-03] MEDS: ZINC SULFATE 220 MG CAPSULE (FP) PO SCH (09:22)
[2020-12-03] MEDS: ESCITALOPRAM OXALATE 10 MG TABLET PO SCH (09:22)
[2020-12-03] MEDS: DEXAMETHASONE SOD PHOSPHATE 10 MG/1 ML VIAL IVPUSH SCH (09:22)
[2020-12-03] MEDS: ASCORBIC ACID 500 MG TABLET (FP) PO SCH ×2 (09:22→22:00)
[2020-12-03] MEDS: amLODIPine BESYLATE 5 MG TABLET (FP) PO SCH (09:22)
[2020-12-03] MEDS: INSULIN (LEVEMIR) 100 UNITS/ML UNITS SQ SCH ×2 (09:22→21:59)
[2020-12-03] MEDS: FAMOTIDINE 20 MG TABLET PO SCH (09:22)
[2020-12-03] MEDS: CHOLECALCIFEROL (VIT D3) 1,000 UNIT (25 MCG) TABLET PO SCH (09:22)
[2020-12-03] MEDS: BUDESONIDE/FORMETEROL FUMARATE 80/4.5 mcg INHALER IH SCH ×2 (09:55→22:00)
[2020-12-04] MEDS: HEPARIN NA (PORCINE) 5,000 UNITS/ML 1ML VIAL SQ SCH ×2 (06:39→13:11)
[2020-12-04] MEDS: INSULIN SLIDING SCALE (NOVOLOG) 1 VIAL SQ SCH ×4 (06:47→21:06)
[2020-12-04 09:12] LABS: BASO % 0.3 % (0-2.0); EOS % 1.5 % (0-4.5); HEMATOCRIT 36.7 % (32.4-45.2); HEMOGLOBIN 12.3 GM/dL (10.7-15.3); LYMPH % 14.1 % (8-40); MCH 29.8 pg (25.7-33.7); MCHC 33.5 g/dl (32.0-36.0); MEAN CELL VOLUME 88.8 fl (80-96); MEAN PLT VOLUME 9.9 fl (7.5-11.1); MONO % 2.7 % (3.8-10.2); NEUT % 81.4 % (42.8-82.8); PLATELET COUNT 491 K/MM3 (134-434); POTASSIUM 4.7 mmol/L (3.5-5.1); RBC 4.13 M/mm3 (3.60-5.2); RDW 14.4 % (11.6-15.6); WHITE BLOOD COUNT 10.9 K/mm3 (4.0-10.0)
[2020-12-04 09:24] LABS: ALBUMIN 2.9 g/dl (3.4-5.0)
[2020-12-04 09:25] LABS: BLOOD UREA NITROGEN 41.5 mg/dL (7-18); CALCIUM 9.1 mg/dL (8.5-10.1)
[2020-12-04 09:26] LABS: MAGNESIUM 2.3 mg/dL (1.8-2.4)
[2020-12-04 09:27] LABS: CREATININE 1.2 mg/dL (0.55-1.3)
[2020-12-04 09:29] LABS: BILIRUBIN,TOTAL 0.9 mg/dL (0.2-1); TOT PROT 7.7 g/dl (6.4-8.2)
[2020-12-04] MEDS: DEXAMETHASONE SOD PHOSPHATE 10 MG/1 ML VIAL IVPUSH SCH (10:30)
[2020-12-04] MEDS: CHOLECALCIFEROL (VIT D3) 1,000 UNIT (25 MCG) TABLET PO SCH (10:46)
[2020-12-04] MEDS: ESCITALOPRAM OXALATE 10 MG TABLET PO SCH (10:46)
[2020-12-04] MEDS: FAMOTIDINE 20 MG TABLET PO SCH (10:47)
[2020-12-04] MEDS: BUDESONIDE/FORMETEROL FUMARATE 80/4.5 mcg INHALER IH SCH ×2 (10:47→21:07)
[2020-12-04] MEDS: INSULIN (LEVEMIR) 100 UNITS/ML UNITS SQ SCH ×2 (10:47→21:06)
[2020-12-04] MEDS: ASCORBIC ACID 500 MG TABLET (FP) PO SCH ×2 (10:47→21:06)
[2020-12-04] MEDS: amLODIPine BESYLATE 5 MG TABLET (FP) PO SCH (10:47)
[2020-12-04] MEDS: ZINC SULFATE 220 MG CAPSULE (FP) PO SCH (10:47)
[2020-12-04] MEDS: predniSONE 20 MG TABLET (UD) PO SCH (13:25)
[2020-12-04] MEDS: APIXABAN 5 MG TABLET PO SCH (21:06)
[2020-12-05] MEDS: INSULIN SLIDING SCALE (NOVOLOG) 1 VIAL SQ SCH ×4 (06:42→21:27)
[2020-12-05 08:51] LABS: BASO % 0.2 % (0-2.0); EOS % 0.2 % (0-4.5); HEMATOCRIT 35.4 % (32.4-45.2); HEMOGLOBIN 11.9 GM/dL (10.7-15.3); LYMPH % 6.3 % (8-40); MCH 29.5 pg (25.7-33.7); MCHC 33.5 g/dl (32.0-36.0); MEAN CELL VOLUME 88.3 fl (80-96); MEAN PLT VOLUME 9.7 fl (7.5-11.1); MONO % 2.4 % (3.8-10.2); NEUT % 90.9 % (42.8-82.8); PLATELET COUNT 424 K/MM3 (134-434); RBC 4.01 M/mm3 (3.60-5.2); RDW 14.2 % (11.6-15.6)
[2020-12-05 09:20] LABS: ALBUMIN 2.6 g/dl (3.4-5.0); BLOOD UREA NITROGEN 42.7 mg/dL (7-18); CALCIUM 8.7 mg/dL (8.5-10.1); MAGNESIUM 2.3 mg/dL (1.8-2.4)
[2020-12-05 09:23] LABS: CREATININE 1.3 mg/dL (0.55-1.3)
[2020-12-05 09:25] LABS: BILIRUBIN,TOTAL 0.9 mg/dL (0.2-1); TOT PROT 7.2 g/dl (6.4-8.2)
[2020-12-05 09:47] LABS: POTASSIUM 4.8 mmol/L (3.5-5.1)
[2020-12-05] MEDS: ASCORBIC ACID 500 MG TABLET (FP) PO SCH ×2 (09:55→21:26)
[2020-12-05] MEDS: ESCITALOPRAM OXALATE 10 MG TABLET PO SCH (09:55)
[2020-12-05] MEDS: CHOLECALCIFEROL (VIT D3) 1,000 UNIT (25 MCG) TABLET PO SCH (09:55)
[2020-12-05] MEDS: amLODIPine BESYLATE 5 MG TABLET (FP) PO SCH (09:55)
[2020-12-05] MEDS: predniSONE 20 MG TABLET (UD) PO SCH (09:55)
[2020-12-05] MEDS: ZINC SULFATE 220 MG CAPSULE (FP) PO SCH (09:56)
[2020-12-05] MEDS: APIXABAN 5 MG TABLET PO SCH ×2 (09:56→21:26)
[2020-12-05] MEDS: BUDESONIDE/FORMETEROL FUMARATE 80/4.5 mcg INHALER IH SCH ×2 (09:57→21:27)
[2020-12-05] MEDS: FAMOTIDINE 20 MG TABLET PO SCH (09:57)
[2020-12-05] MEDS: INSULIN (LEVEMIR) 100 UNITS/ML UNITS SQ SCH ×2 (09:59→21:26)
[2020-12-05] MEDS ORDERED: INSULIN (LEVEMIR) 100 UNITS/ML UNITS SQ ONE (13:00)
[2020-12-06] MEDS: INSULIN (LEVEMIR) 100 UNITS/ML UNITS SQ SCH ×2 (06:11→21:56)
[2020-12-06] MEDS: INSULIN SLIDING SCALE (NOVOLOG) 1 VIAL SQ SCH ×4 (06:12→21:56)
[2020-12-06 07:52] LABS: BASO % 0.3 % (0-2.0); EOS % 0.5 % (0-4.5); HEMATOCRIT 34.6 % (32.4-45.2); HEMOGLOBIN 11.4 GM/dL (10.7-15.3); LYMPH % 6.5 % (8-40); MCH 29.2 pg (25.7-33.7); MCHC 32.8 g/dl (32.0-36.0); MEAN CELL VOLUME 89.1 fl (80-96); MEAN PLT VOLUME 9.9 fl (7.5-11.1); MONO % 2.9 % (3.8-10.2); NEUT % 89.8 % (42.8-82.8); PLATELET COUNT 384 K/MM3 (134-434); RBC 3.89 M/mm3 (3.60-5.2); RDW 14.2 % (11.6-15.6); WHITE BLOOD COUNT 12.6 K/mm3 (4.0-10.0)
[2020-12-06 08:29] LABS: ALBUMIN 2.7 g/dl (3.4-5.0); BLOOD UREA NITROGEN 44.1 mg/dL (7-18); MAGNESIUM 2.5 mg/dL (1.8-2.4)
[2020-12-06 08:32] LABS: CREATININE 1.3 mg/dL (0.55-1.3)
[2020-12-06 08:33] LABS: BILIRUBIN,TOTAL 0.9 mg/dL (0.2-1)
[2020-12-06] MEDS: predniSONE 20 MG TABLET (UD) PO SCH (09:21)
[2020-12-06] MEDS: ZINC SULFATE 220 MG CAPSULE (FP) PO SCH (09:22)
[2020-12-06] MEDS: ESCITALOPRAM OXALATE 10 MG TABLET PO SCH (09:22)
[2020-12-06] MEDS: APIXABAN 5 MG TABLET PO SCH ×2 (09:22→21:25)
[2020-12-06] MEDS: FAMOTIDINE 20 MG TABLET PO SCH (09:23)
[2020-12-06] MEDS: amLODIPine BESYLATE 5 MG TABLET (FP) PO SCH (09:23)
[2020-12-06] MEDS: ASCORBIC ACID 500 MG TABLET (FP) PO SCH ×2 (09:23→21:25)
[2020-12-06] MEDS: CHOLECALCIFEROL (VIT D3) 1,000 UNIT (25 MCG) TABLET PO SCH (09:23)
[2020-12-06] MEDS: BUDESONIDE/FORMETEROL FUMARATE 80/4.5 mcg INHALER IH SCH ×2 (09:24→21:36)
[2020-12-06] MEDS ORDERED: FUROSEMIDE 40 MG/4 ML INJECTABLE VIAL IVPUSH ONE (14:10)
[2020-12-06] MEDS ORDERED: SODIUM ZIRCONIUM CYCLOSILICATE (LOKELMA) 5 GM PACKET PO ONE (16:15)
[2020-12-07] MEDS: INSULIN (LEVEMIR) 100 UNITS/ML UNITS SQ SCH ×2 (06:18→21:04)
[2020-12-07] MEDS: INSULIN SLIDING SCALE (NOVOLOG) 1 VIAL SQ SCH ×4 (06:18→21:04)
[2020-12-07] MEDS: APIXABAN 5 MG TABLET PO SCH ×2 (09:33→21:03)
[2020-12-07] MEDS: ESCITALOPRAM OXALATE 10 MG TABLET PO SCH (09:33)
[2020-12-07] MEDS: amLODIPine BESYLATE 5 MG TABLET (FP) PO SCH (09:34)
[2020-12-07] MEDS: CHOLECALCIFEROL (VIT D3) 1,000 UNIT (25 MCG) TABLET PO SCH (09:34)
[2020-12-07] MEDS: ASCORBIC ACID 500 MG TABLET (FP) PO SCH ×2 (09:34→21:03)
[2020-12-07] MEDS: ZINC SULFATE 220 MG CAPSULE (FP) PO SCH (09:34)
[2020-12-07] MEDS: DEXAMETHASONE SOD PHOSPHATE 4 MG/1 ML VIAL IVPUSH SCH ×3 (09:42→21:03)
[2020-12-07] MEDS: BUDESONIDE/FORMETEROL FUMARATE 80/4.5 mcg INHALER IH SCH ×2 (09:43→21:15)
[2020-12-07] MEDS: FAMOTIDINE 20 MG TABLET PO SCH (09:43)
[2020-12-07 15:51] LABS: BASO % 0.4 % (0-2.0); EOS % 0.1 % (0-4.5); HEMATOCRIT 40.4 % (32.4-45.2); LYMPH % 3.5 % (8-40); MCH 28.8 pg (25.7-33.7); MCHC 32.1 g/dl (32.0-36.0); MEAN CELL VOLUME 89.8 fl (80-96); MEAN PLT VOLUME 10.7 fl (7.5-11.1); MONO % 1.3 % (3.8-10.2); NEUT % 94.7 % (42.8-82.8); PLATELET COUNT 385 K/MM3 (134-434); RDW 14.7 % (11.6-15.6); WHITE BLOOD COUNT 16.7 K/mm3 (4.0-10.0)
[2020-12-07 16:17] LABS: CHLORIDE 106 mmol/L (98-107); SODIUM 138 mmol/L (136-145)
[2020-12-07 16:20] LABS: ANION GAP 7 MMOL/L (8-16); BLOOD UREA NITROGEN 52.9 mg/dL (7-18); CALCIUM 9.3 mg/dL (8.5-10.1); CO2 25 mmol/L (21-32); GLUCOSE,RANDOM 208 mg/dL (74-106)
[2020-12-07 16:21] LABS: MAGNESIUM 2.2 mg/dL (1.8-2.4)
[2020-12-07 16:23] LABS: CREATININE 1.4 mg/dL (0.55-1.3); SGPT/ALT 26 U/L (13-61)
[2020-12-07 16:24] LABS: BILIRUBIN,TOTAL 0.8 mg/dL (0.2-1); TOT PROT 7.7 g/dl (6.4-8.2)
[2020-12-07 16:26] LABS: ALK PHOS 94 U/L (45-117); LDH 689 U/L (84-246)
[2020-12-07 16:27] LABS: SGOT/AST 38 U/L (15-37)
[2020-12-07 16:30] LABS: ANISOCYTOSIS 1+; MACROCYTOSIS 0; OVALOCYTE 1+; PLATELET ESTIMATE NORMAL; TARGET CELLS 1+
[2020-12-07] MEDS ORDERED: ALBUTEROL SO4 HFA INHALER IH PRN (16:38)
[2020-12-07] MEDS: CHLORHEXIDINE GLUCONATE 4% CLEANSER FOR DECOLONIZATION TP SCH (21:03)
[2020-12-07] MEDS: MUPIROCIN 2% TOPICAL OINTMENT FOR DECOLONIZATION NS SCH (21:33)
[2020-12-07] MEDS ORDERED: MUPIROCIN 2% TOPICAL OINTMENT FOR DECOLONIZATION NS SCH (22:00)
[2020-12-07] MEDS ORDERED: CHLORHEXIDINE GLUCONATE 4% CLEANSER FOR DECOLONIZATION TP SCH (22:00)
[2020-12-08] MEDS: DEXAMETHASONE SOD PHOSPHATE 4 MG/1 ML VIAL IVPUSH SCH ×4 (02:35→21:38)
[2020-12-08] MEDS: INSULIN (LEVEMIR) 100 UNITS/ML UNITS SQ SCH ×2 (06:12→21:43)
[2020-12-08] MEDS: INSULIN SLIDING SCALE (NOVOLOG) 1 VIAL SQ SCH ×4 (06:12→21:42)
[2020-12-08 06:48] LABS: HEMATOCRIT 39.4 % (32.4-45.2); HEMOGLOBIN 12.7 GM/dL (10.7-15.3); MCH 29.2 pg (25.7-33.7); MCHC 32.2 g/dl (32.0-36.0); MEAN CELL VOLUME 90.6 fl (80-96); PLATELET COUNT 352 K/MM3 (134-434); RBC 4.34 M/mm3 (3.60-5.2); RDW 14.5 % (11.6-15.6)
[2020-12-08 06:52] LABS: BASO % 0.3 % (0-2.0); HEMATOCRIT 38.5 % (32.4-45.2); HEMOGLOBIN 12.6 GM/dL (10.7-15.3); LYMPH % 3.3 % (8-40); MCH 29.3 pg (25.7-33.7); MCHC 32.6 g/dl (32.0-36.0); MEAN CELL VOLUME 89.7 fl (80-96); MEAN PLT VOLUME 10.7 fl (7.5-11.1); MONO % 2.3 % (3.8-10.2); NEUT % 94.1 % (42.8-82.8); PLATELET COUNT 344 K/MM3 (134-434); RBC 4.29 M/mm3 (3.60-5.2); RDW 14.6 % (11.6-15.6); WHITE BLOOD COUNT 15.9 K/mm3 (4.0-10.0)
[2020-12-08 07:07] LABS: POTASSIUM 5.7 mmol/L (3.5-5.1)
[2020-12-08 07:09] LABS: CALCIUM 9.3 mg/dL (8.5-10.1)
[2020-12-08 07:10] LABS: ALBUMIN 2.8 g/dl (3.4-5.0); BLOOD UREA NITROGEN 53.4 mg/dL (7-18); MAGNESIUM 2.4 mg/dL (1.8-2.4)
[2020-12-08 07:13] LABS: CREATININE 1.3 mg/dL (0.55-1.3)
[2020-12-08 07:14] LABS: BILIRUBIN,TOTAL 0.8 mg/dL (0.2-1)
[2020-12-08 07:15] LABS: TOT PROT 7.4 g/dl (6.4-8.2)
[2020-12-08 09:14] LABS: ANISOCYTOSIS 1+; MACROCYTOSIS 1+; PLATELET ESTIMATE NORMAL
[2020-12-08] MEDS ORDERED: PT OWN MED DRAWER 7, Y5N ONE (09:19)
[2020-12-08] MEDS: ASCORBIC ACID 500 MG TABLET (FP) PO SCH ×2 (09:29→21:39)
[2020-12-08] MEDS: APIXABAN 5 MG TABLET PO SCH ×2 (09:30→21:38)
[2020-12-08] MEDS: MUPIROCIN 2% TOPICAL OINTMENT FOR DECOLONIZATION NS SCH ×2 (09:30→21:38)
[2020-12-08] MEDS: BUDESONIDE/FORMETEROL FUMARATE 80/4.5 mcg INHALER IH SCH ×2 (09:42→21:40)
[2020-12-08] MEDS ORDERED: amLODIPine BESYLATE 5 MG TABLET (FP) PO SCH (10:00)
[2020-12-08] MEDS ORDERED: CHOLECALCIFEROL (VIT D3) 1,000 UNIT (25 MCG) TABLET PO SCH (10:00)
[2020-12-08] MEDS ORDERED: ZINC SULFATE 220 MG CAPSULE (FP) PO SCH (10:00)
[2020-12-08] MEDS ORDERED: ESCITALOPRAM OXALATE 10 MG TABLET PO SCH (10:00)
[2020-12-08] MEDS ORDERED: FAMOTIDINE 20 MG TABLET PO SCH (10:00)
[2020-12-08] MEDS ORDERED: POLYETHYLENE GLYCOL 3350 119 GM BTL PO PRN (11:25)
[2020-12-08] MEDS: SODIUM ZIRCONIUM CYCLOSILICATE (LOKELMA) 5 GM PACKET PO SCH (18:27)
[2020-12-08] MEDS ORDERED: SODIUM PHOSPHATE/NA BIPHOS 133 ML ENEMA PR ONE (20:23)
[2020-12-08] MEDS: CHLORHEXIDINE GLUCONATE 4% CLEANSER FOR DECOLONIZATION TP SCH (21:38)
[2020-12-09] MEDS: INSULIN (LEVEMIR) 100 UNITS/ML UNITS SQ SCH ×2 (06:09→22:00)
[2020-12-09] MEDS: INSULIN SLIDING SCALE (NOVOLOG) 1 VIAL SQ SCH ×3 (06:11→21:59)
[2020-12-09 06:28] LABS: BASO % 0.4 % (0-2.0); HEMATOCRIT 42.2 % (32.4-45.2); HEMOGLOBIN 13.9 GM/dL (10.7-15.3); LYMPH % 3.3 % (8-40); MCH 29.4 pg (25.7-33.7); MCHC 32.9 g/dl (32.0-36.0); MEAN CELL VOLUME 89.5 fl (80-96); MEAN PLT VOLUME 10.2 fl (7.5-11.1); MONO % 3.1 % (3.8-10.2); NEUT % 93.2 % (42.8-82.8); PLATELET COUNT 318 K/MM3 (134-434); RBC 4.72 M/mm3 (3.60-5.2); RDW 14.7 % (11.6-15.6); WHITE BLOOD COUNT 21.9 K/mm3 (4.0-10.0)
[2020-12-09 06:59] LABS: CHLORIDE 108 mmol/L (98-107); POTASSIUM 5.4 mmol/L (3.5-5.1); SODIUM 141 mmol/L (136-145)
[2020-12-09 07:02] LABS: ANION GAP 7 MMOL/L (8-16); BLOOD UREA NITROGEN 48.8 mg/dL (7-18); CALCIUM 9.4 mg/dL (8.5-10.1); CO2 26 mmol/L (21-32); GLUCOSE,RANDOM 101 mg/dL (74-106); MAGNESIUM 2.2 mg/dL (1.8-2.4)
[2020-12-09 07:05] LABS: CREATININE 1.3 mg/dL (0.55-1.3); SGPT/ALT 18 U/L (13-61)
[2020-12-09 07:06] LABS: SGOT/AST 23 U/L (15-37)
[2020-12-09 07:07] LABS: BILIRUBIN,TOTAL 0.8 mg/dL (0.2-1); LDH 763 U/L (84-246); TOT PROT 7.7 g/dl (6.4-8.2)
[2020-12-09 07:15] LABS: ALK PHOS 118 U/L (45-117)
[2020-12-09] MEDS ORDERED: ALBUTEROL SO4 HFA INHALER IH PRN (08:34)
[2020-12-09] MEDS: DEXAMETHASONE SOD PHOSPHATE 4 MG/1 ML VIAL IVPUSH SCH ×2 (09:35→22:01)
[2020-12-09] MEDS: ESCITALOPRAM OXALATE 10 MG TABLET PO SCH (09:35)
[2020-12-09] MEDS: ZINC SULFATE 220 MG CAPSULE (FP) PO SCH (09:35)
[2020-12-09] MEDS: ASCORBIC ACID 500 MG TABLET (FP) PO SCH ×2 (09:35→22:01)
[2020-12-09] MEDS: amLODIPine BESYLATE 5 MG TABLET (FP) PO SCH (09:36)
[2020-12-09] MEDS: MUPIROCIN 2% TOPICAL OINTMENT FOR DECOLONIZATION NS SCH ×2 (09:36→22:01)
[2020-12-09] MEDS: CHOLECALCIFEROL (VIT D3) 1,000 UNIT (25 MCG) TABLET PO SCH (09:36)
[2020-12-09] MEDS: SODIUM ZIRCONIUM CYCLOSILICATE (LOKELMA) 5 GM PACKET PO SCH (09:36)
[2020-12-09] MEDS: APIXABAN 5 MG TABLET PO SCH ×2 (09:36→22:01)
[2020-12-09] MEDS: FAMOTIDINE 20 MG TABLET PO SCH (09:36)
[2020-12-09 09:37] LABS: ANISOCYTOSIS 0; MACROCYTOSIS 0; PLATELET ESTIMATE NORMAL
[2020-12-09] MEDS: BUDESONIDE/FORMETEROL FUMARATE 80/4.5 mcg INHALER IH SCH ×2 (10:43→22:02)
[2020-12-09] MEDS: CHLORHEXIDINE GLUCONATE 4% CLEANSER FOR DECOLONIZATION TP SCH (22:02)
[2020-12-10] MEDS: INSULIN SLIDING SCALE (NOVOLOG) 1 VIAL SQ SCH ×4 (06:31→21:20)
[2020-12-10 06:48] LABS: HEMATOCRIT 42.8 % (32.4-45.2); MCH 29.4 pg (25.7-33.7); MCHC 32.8 g/dl (32.0-36.0); MEAN CELL VOLUME 89.7 fl (80-96); MEAN PLT VOLUME 10.5 fl (7.5-11.1); PLATELET COUNT 278 K/MM3 (134-434); RBC 4.77 M/mm3 (3.60-5.2); WHITE BLOOD COUNT 18.4 K/mm3 (4.0-10.0)
[2020-12-10] MEDS: INSULIN (LEVEMIR) 100 UNITS/ML UNITS SQ SCH ×2 (06:49→21:19)
[2020-12-10 06:55] LABS: ALLENS TEST POSITIVE; ARTERIAL BLD GAS O2 SATURATION 91.7 mmHg (95-98); ARTERIAL BLOOD GAS BASE EXCESS -2.1 mmol/L (-2-2); ARTERIAL BLOOD GAS pH 7.421 (7.350-7.450)
[2020-12-10 06:56] LABS: POTASSIUM 5.9 mmol/L (3.5-5.1)
[2020-12-10 06:58] LABS: BLOOD UREA NITROGEN 52.3 mg/dL (7-18); CALCIUM 9.4 mg/dL (8.5-10.1); MAGNESIUM 2.4 mg/dL (1.8-2.4)
[2020-12-10 07:01] LABS: CREATININE 1.3 mg/dL (0.55-1.3)
[2020-12-10 07:02] LABS: PHOSPHOROUS 5.7 mg/dL (2.5-4.9)
[2020-12-10] MEDS ORDERED: SODIUM BICARBONATE 8.4% 50 MEQ/50 ML DISP.SYRIN IVPUSH ONE (07:45)
[2020-12-10] MEDS ORDERED: DEXTROSE 50%-WATER - 25 GM/50 ML VIAL IVPUSH ONE (07:45)
[2020-12-10] MEDS ORDERED: INSULIN REGULAR HUMAN 100 UNITS/ML *VIAL IVPUSH ONE (07:45)
[2020-12-10] MEDS ORDERED: INSULIN REGULAR HUMAN 100 UNITS/ML *VIAL ONE (08:46)
[2020-12-10] MEDS: SODIUM ZIRCONIUM CYCLOSILICATE (LOKELMA) 5 GM PACKET PO SCH (09:16)
[2020-12-10] MEDS: DEXAMETHASONE SOD PHOSPHATE 4 MG/1 ML VIAL IVPUSH SCH ×2 (09:16→21:18)
[2020-12-10] MEDS: APIXABAN 5 MG TABLET PO SCH ×2 (09:16→21:18)
[2020-12-10] MEDS: CHOLECALCIFEROL (VIT D3) 1,000 UNIT (25 MCG) TABLET PO SCH (09:16)
[2020-12-10] MEDS: ZINC SULFATE 220 MG CAPSULE (FP) PO SCH (09:17)
[2020-12-10] MEDS: MUPIROCIN 2% TOPICAL OINTMENT FOR DECOLONIZATION NS SCH ×2 (09:17→21:18)
[2020-12-10] MEDS: FAMOTIDINE 20 MG TABLET PO SCH (09:17)
[2020-12-10] MEDS: ASCORBIC ACID 500 MG TABLET (FP) PO SCH ×2 (09:17→21:18)
[2020-12-10] MEDS: ESCITALOPRAM OXALATE 10 MG TABLET PO SCH (09:17)
[2020-12-10] MEDS: amLODIPine BESYLATE 5 MG TABLET (FP) PO SCH (09:17)
[2020-12-10] MEDS: BUDESONIDE/FORMETEROL FUMARATE 80/4.5 mcg INHALER IH SCH ×2 (09:18→21:20)
[2020-12-10 13:13] LABS: POTASSIUM 5.2 mmol/L (3.5-5.1)
[2020-12-10 13:16] LABS: BLOOD UREA NITROGEN 52.7 mg/dL (7-18)
[2020-12-10 13:19] LABS: CALCIUM 8.9 mg/dL (8.5-10.1); CREATININE 1.3 mg/dL (0.55-1.3)
[2020-12-10] MEDS ORDERED: amLODIPine BESYLATE 5 MG TABLET (FP) PO SCH (14:01)
[2020-12-10] MEDS: CHLORHEXIDINE GLUCONATE 4% CLEANSER FOR DECOLONIZATION TP SCH (21:19)
[2020-12-11] MEDS ORDERED: ALPRAZolam 0.25 MG TABLET PO ONE (01:47)
[2020-12-11] MEDS ORDERED: hydrALAZINE HCL 20 MG/ML VIAL IVPUSH ONE (02:16)
[2020-12-11] MEDS ORDERED: RAPID SEQUENCE INTUBATION KIT NR ONE (02:36)
[2020-12-11] MEDS ORDERED: PROPOFOL 1,000,000 MCG/100 ML VIAL ONE (02:44)
[2020-12-11] MEDS ORDERED: MORPHINE SULFATE 2 MG/ML VIAL ONE (03:27)
[2020-12-11] MEDS: MORPHINE SULFATE 2 MG/ML VIAL IVPUSH PRN ×2 (03:27→21:22)
[2020-12-11 03:29] LABS: ARTERIAL BLD GAS O2 SATURATION 89.6 mmHg (95-98); ARTERIAL BLOOD GAS BASE EXCESS -0.4 mmol/L (-2-2); ARTERIAL BLOOD GAS PO2 56.8 mmHg (80-100); ARTERIAL BLOOD GAS pH 7.397 (7.350-7.450)
[2020-12-11 03:40] LABS: ALLENS TEST POSITIVE; VENT MODE S/T; VENT RATE 16
[2020-12-11] MEDS: INSULIN SLIDING SCALE (NOVOLOG) 1 VIAL SQ SCH ×4 (06:20→21:21)
[2020-12-11] MEDS: INSULIN (LEVEMIR) 100 UNITS/ML UNITS SQ SCH ×2 (06:21→21:21)
[2020-12-11 06:49] LABS: BASO % 0.2 % (0-2.0); HEMATOCRIT 45.4 % (32.4-45.2); HEMOGLOBIN 14.7 GM/dL (10.7-15.3); LYMPH % 3.4 % (8-40); MCH 29.2 pg (25.7-33.7); MCHC 32.4 g/dl (32.0-36.0); MEAN CELL VOLUME 90.1 fl (80-96); MEAN PLT VOLUME 10.6 fl (7.5-11.1); MONO % 4.1 % (3.8-10.2); NEUT % 92.3 % (42.8-82.8); PLATELET COUNT 312 K/MM3 (134-434); RBC 5.04 M/mm3 (3.60-5.2)
[2020-12-11 07:11] LABS: POTASSIUM 5.4 mmol/L (3.5-5.1)
[2020-12-11 07:14] LABS: ALBUMIN 2.9 g/dl (3.4-5.0); BLOOD UREA NITROGEN 53.1 mg/dL (7-18); CALCIUM 9.6 mg/dL (8.5-10.1)
[2020-12-11 07:15] LABS: MAGNESIUM 2.5 mg/dL (1.8-2.4)
[2020-12-11 07:17] LABS: CREATININE 1.4 mg/dL (0.55-1.3)
[2020-12-11 07:18] LABS: PHOSPHOROUS 6.3 mg/dL (2.5-4.9)
[2020-12-11 07:19] LABS: BILIRUBIN,TOTAL 1.2 mg/dL (0.2-1); TOT PROT 7.7 g/dl (6.4-8.2)
[2020-12-11] MEDS: amLODIPine BESYLATE 5 MG TABLET (FP) PO SCH (09:23)
[2020-12-11] MEDS: CHOLECALCIFEROL (VIT D3) 1,000 UNIT (25 MCG) TABLET PO SCH (09:23)
[2020-12-11] MEDS: DEXAMETHASONE SOD PHOSPHATE 4 MG/1 ML VIAL IVPUSH SCH ×2 (09:23→21:21)
[2020-12-11] MEDS: ZINC SULFATE 220 MG CAPSULE (FP) PO SCH (09:23)
[2020-12-11] MEDS: SODIUM ZIRCONIUM CYCLOSILICATE (LOKELMA) 5 GM PACKET PO SCH (09:24)
[2020-12-11] MEDS: ASCORBIC ACID 500 MG TABLET (FP) PO SCH ×2 (09:24→21:21)
[2020-12-11] MEDS: FAMOTIDINE 20 MG TABLET PO SCH (09:24)
[2020-12-11] MEDS: ESCITALOPRAM OXALATE 10 MG TABLET PO SCH (09:24)
[2020-12-11] MEDS: APIXABAN 5 MG TABLET PO SCH ×2 (09:24→21:21)
[2020-12-11] MEDS: MUPIROCIN 2% TOPICAL OINTMENT FOR DECOLONIZATION NS SCH ×2 (09:25→21:20)
[2020-12-11] MEDS: BUDESONIDE/FORMETEROL FUMARATE 80/4.5 mcg INHALER IH SCH ×2 (09:25→21:21)
[2020-12-11 11:21] LABS: ANISOCYTOSIS 0; HELMET CELLS 0; HOWELL-JOLLY BODIES 0; MACROCYTOSIS 0; OVALOCYTE 0; PLATELET ESTIMATE NORMAL; ROULEAU 0; SICKELED CELLS 0; TARGET CELLS 0; TEAR DROP CELLS 0; TOXIC GRANULATION 0
[2020-12-11] MEDS: CHLORHEXIDINE GLUCONATE 4% CLEANSER FOR DECOLONIZATION TP SCH (21:22)
[2020-12-12] MEDS: INSULIN (LEVEMIR) 100 UNITS/ML UNITS SQ SCH ×2 (06:04→21:50)
[2020-12-12] MEDS: INSULIN SLIDING SCALE (NOVOLOG) 1 VIAL SQ SCH ×4 (06:05→21:51)
[2020-12-12 07:03] LABS: BASO % 0.3 % (0-2.0); EOS % 0.2 % (0-4.5); HEMATOCRIT 42.9 % (32.4-45.2); HEMOGLOBIN 14.2 GM/dL (10.7-15.3); MCH 29.9 pg (25.7-33.7); MCHC 33.1 g/dl (32.0-36.0); MEAN CELL VOLUME 90.6 fl (80-96); MEAN PLT VOLUME 9.8 fl (7.5-11.1); MONO % 3.3 % (3.8-10.2); NEUT % 92.2 % (42.8-82.8); PLATELET COUNT 225 K/MM3 (134-434); RBC 4.74 M/mm3 (3.60-5.2); RDW 14.9 % (11.6-15.6); WHITE BLOOD COUNT 18.4 K/mm3 (4.0-10.0)
[2020-12-12 07:22] LABS: POTASSIUM 5.7 mmol/L (3.5-5.1)
[2020-12-12 07:29] LABS: ALBUMIN 2.8 g/dl (3.4-5.0); BLOOD UREA NITROGEN 71.7 mg/dL (7-18); CALCIUM 9.2 mg/dL (8.5-10.1)
[2020-12-12 07:30] LABS: MAGNESIUM 2.8 mg/dL (1.8-2.4)
[2020-12-12 07:32] LABS: CREATININE 1.6 mg/dL (0.55-1.3); PHOSPHOROUS 6.1 mg/dL (2.5-4.9)
[2020-12-12 07:33] LABS: BILIRUBIN,TOTAL 1.3 mg/dL (0.2-1); TOT PROT 7.3 g/dl (6.4-8.2)
[2020-12-12] MEDS ORDERED: DEXTROSE 50%-WATER - 25 GM/50 ML VIAL IVPUSH ONE (08:31)
[2020-12-12] MEDS ORDERED: INSULIN REGULAR HUMAN 100 UNITS/ML *VIAL IVPUSH ONE (08:33)
[2020-12-12] MEDS ORDERED: SODIUM CHLORIDE 0.45% 1,000 ML IV SCH (08:45)
[2020-12-12 08:50] LABS: ANISOCYTOSIS 1+; MACROCYTOSIS 0; PLATELET ESTIMATE NORMAL
[2020-12-12] MEDS ORDERED: DEXTROSE 50%-WATER 25 GM/50 ML DISP.SYRIN ONE (08:54)
[2020-12-12] MEDS: ESCITALOPRAM OXALATE 10 MG TABLET PO SCH (09:02)
[2020-12-12] MEDS: ASCORBIC ACID 500 MG TABLET (FP) PO SCH ×2 (09:02→21:51)
[2020-12-12] MEDS: CHOLECALCIFEROL (VIT D3) 1,000 UNIT (25 MCG) TABLET PO SCH (09:02)
[2020-12-12] MEDS: APIXABAN 5 MG TABLET PO SCH ×2 (09:02→21:50)
[2020-12-12] MEDS: DEXAMETHASONE SOD PHOSPHATE 4 MG/1 ML VIAL IVPUSH SCH ×2 (09:02→21:50)
[2020-12-12] MEDS: FAMOTIDINE 20 MG TABLET PO SCH (09:02)
[2020-12-12] MEDS: MUPIROCIN 2% TOPICAL OINTMENT FOR DECOLONIZATION NS SCH (09:02)
[2020-12-12] MEDS: SODIUM ZIRCONIUM CYCLOSILICATE (LOKELMA) 5 GM PACKET PO SCH (09:06)
[2020-12-12] MEDS: BUDESONIDE/FORMETEROL FUMARATE 80/4.5 mcg INHALER IH SCH ×2 (09:08→21:51)
[2020-12-12] MEDS: ZINC SULFATE 220 MG CAPSULE (FP) PO SCH (09:08)
[2020-12-12] MEDS: amLODIPine BESYLATE 5 MG TABLET (FP) PO SCH (09:08)
[2020-12-12] MEDS ORDERED: CALCIUM GLUCONATE IN NACL 1 GM/50 ML BAG IVPB ONE (09:30)
[2020-12-12] MEDS: CALCIUM GLUCONATE 10% - 1,000 MG/10 ML VIAL IVPUSH ONE ×2 (09:36→09:38)
[2020-12-12] MEDS: AMINO ACIDS 4.25%/D5W 1,000 ML IV SCH (12:00)
[2020-12-12] MEDS: CHLORHEXIDINE GLUCONATE 4% CLEANSER FOR DECOLONIZATION TP SCH (21:50)
[2020-12-13] MEDS: MORPHINE SULFATE 2 MG/ML VIAL IVPUSH PRN ×3 (05:18→20:11)
[2020-12-13] MEDS: INSULIN SLIDING SCALE (NOVOLOG) 1 VIAL SQ SCH ×4 (07:02→21:20)
[2020-12-13] MEDS: INSULIN (LEVEMIR) 100 UNITS/ML UNITS SQ SCH ×2 (07:02→21:20)
[2020-12-13 07:04] LABS: BASO % 0.4 % (0-2.0); EOS % 0.1 % (0-4.5); HEMATOCRIT 43.9 % (32.4-45.2); HEMOGLOBIN 14.4 GM/dL (10.7-15.3); LYMPH % 2.8 % (8-40); MCH 29.8 pg (25.7-33.7); MCHC 32.9 g/dl (32.0-36.0); MEAN CELL VOLUME 90.7 fl (80-96); MEAN PLT VOLUME 11.2 fl (7.5-11.1); MONO % 3.4 % (3.8-10.2); NEUT % 93.3 % (42.8-82.8); PLATELET COUNT 230 K/MM3 (134-434); RBC 4.83 M/mm3 (3.60-5.2); RDW 15.3 % (11.6-15.6); WHITE BLOOD COUNT 17.4 K/mm3 (4.0-10.0)
[2020-12-13 07:30] LABS: CHLORIDE 104 mmol/L (98-107); POTASSIUM 5.5 mmol/L (3.5-5.1); SODIUM 138 mmol/L (136-145)
[2020-12-13 07:38] LABS: ALBUMIN 2.8 g/dl (3.4-5.0)
[2020-12-13 07:39] LABS: ANION GAP 7 MMOL/L (8-16); CALCIUM 9.7 mg/dL (8.5-10.1); CO2 27 mmol/L (21-32); GLUCOSE,RANDOM 281 mg/dL (74-106); MAGNESIUM 2.7 mg/dL (1.8-2.4); SGPT/ALT 12 U/L (13-61)
[2020-12-13 07:40] LABS: CREATININE 1.3 mg/dL (0.55-1.3); SGOT/AST 34 U/L (15-37)
[2020-12-13 07:42] LABS: BILIRUBIN,TOTAL 1.1 mg/dL (0.2-1); PHOSPHOROUS 5.3 mg/dL (2.5-4.9); TOT PROT 7.5 g/dl (6.4-8.2)
[2020-12-13 07:43] LABS: ALK PHOS 230 U/L (45-117); BLOOD UREA NITROGEN 71.6 mg/dL (7-18)
[2020-12-13 08:04] LABS: LDH > 1000 U/L (84-246)
[2020-12-13 08:51] LABS: ANISOCYTOSIS 1+; MACROCYTOSIS 0; PLATELET ESTIMATE NORMAL
[2020-12-13] MEDS: amLODIPine BESYLATE 5 MG TABLET (FP) PO SCH (09:14)
[2020-12-13] MEDS: FAMOTIDINE 20 MG TABLET PO SCH (09:14)
[2020-12-13] MEDS: ESCITALOPRAM OXALATE 10 MG TABLET PO SCH (09:14)
[2020-12-13] MEDS: SODIUM ZIRCONIUM CYCLOSILICATE (LOKELMA) 5 GM PACKET PO SCH (09:15)
[2020-12-13] MEDS: ASCORBIC ACID 500 MG TABLET (FP) PO SCH ×2 (09:15→21:06)
[2020-12-13] MEDS: ZINC SULFATE 220 MG CAPSULE (FP) PO SCH (09:15)
[2020-12-13] MEDS: APIXABAN 5 MG TABLET PO SCH ×2 (09:15→21:20)
[2020-12-13] MEDS: CHOLECALCIFEROL (VIT D3) 1,000 UNIT (25 MCG) TABLET PO SCH (09:15)
[2020-12-13] MEDS: DEXAMETHASONE SOD PHOSPHATE 4 MG/1 ML VIAL IVPUSH SCH ×2 (09:15→21:20)
[2020-12-13] MEDS: AMINO ACIDS 4.25%/D5W 1,000 ML IV SCH (11:50)
[2020-12-13] MEDS: BUDESONIDE/FORMETEROL FUMARATE 80/4.5 mcg INHALER IH SCH ×2 (11:50→21:06)
[2020-12-13] MEDS ORDERED: LABETALOL HCL 5 MG/1 ML (100MG/20 ML VIAL) IVPUSH ONE (16:03)
[2020-12-13] MEDS ORDERED: LORazepam 2 MG/ML SDV VIAL IVPUSH PRN (20:05)
[2020-12-13] MEDS: CHLORHEXIDINE GLUCONATE 4% CLEANSER FOR DECOLONIZATION TP SCH (21:05)
[2020-12-13] MEDS: DEXMEDETOMIDINE IN 0.9 % NACL 400 MCG/100 ML VIAL IVPB SCH (22:30)
[2020-12-14] MEDS: MORPHINE SULFATE 2 MG/ML VIAL IVPUSH PRN ×2 (01:30→11:38)
[2020-12-14] MEDS ORDERED: morphine CARPU-JECT 4 MG/1 ML DISP.SYRIN IVPUSH ONE (01:54)
[2020-12-14] MEDS ORDERED: MORPHINE SULFATE 2 MG/ML VIAL IVPUSH ONE (01:54)
[2020-12-14] MEDS ORDERED: SODIUM CHLORIDE 500 ML IV STA (02:02)
[2020-12-14] MEDS ORDERED: INSULIN (LEVEMIR) 100 UNITS/ML UNITS SQ ONE (05:05)
[2020-12-14] MEDS: DEXMEDETOMIDINE IN 0.9 % NACL 400 MCG/100 ML VIAL IVPB SCH (05:09)
[2020-12-14] MEDS: INSULIN (LEVEMIR) 100 UNITS/ML UNITS SQ SCH ×2 (06:25→06:26)
[2020-12-14] MEDS ORDERED: DEXTROSE 50%-WATER - 25 GM/50 ML VIAL IVPUSH ONE ×2 (06:25→07:27)
[2020-12-14] MEDS: INSULIN SLIDING SCALE (NOVOLOG) 1 VIAL SQ SCH ×4 (06:25→18:01)
[2020-12-14] MEDS ORDERED: DEXTROSE 50%-WATER 25 GM/50 ML DISP.SYRIN ONE ×2 (06:28→07:49)
[2020-12-14 06:58] LABS: BASO % 0.1 % (0-2.0); EOS % 0.3 % (0-4.5); HEMATOCRIT 41.3 % (32.4-45.2); HEMOGLOBIN 13.1 GM/dL (10.7-15.3); LYMPH % 3.3 % (8-40); MCH 28.8 pg (25.7-33.7); MCHC 31.6 g/dl (32.0-36.0); MEAN CELL VOLUME 91.2 fl (80-96); MEAN PLT VOLUME 10.4 fl (7.5-11.1); MONO % 2.6 % (3.8-10.2); NEUT % 93.7 % (42.8-82.8); PLATELET COUNT 164 K/MM3 (134-434); RBC 4.53 M/mm3 (3.60-5.2); RDW 15.4 % (11.6-15.6); WHITE BLOOD COUNT 16.6 K/mm3 (4.0-10.0)
[2020-12-14 07:05] LABS: CALCIUM 9.1 mg/dL (8.5-10.1)
[2020-12-14 07:06] LABS: ALBUMIN 2.5 g/dl (3.4-5.0); BLOOD UREA NITROGEN 91.3 mg/dL (7-18); MAGNESIUM 2.5 mg/dL (1.8-2.4)
[2020-12-14 07:09] LABS: CREATININE 1.8 mg/dL (0.55-1.3); PHOSPHOROUS 6.7 mg/dL (2.5-4.9)
[2020-12-14 07:10] LABS: BILIRUBIN,TOTAL 0.9 mg/dL (0.2-1); TOT PROT 6.8 g/dl (6.4-8.2)
[2020-12-14 07:22] LABS: POTASSIUM 6.1 mmol/L (3.5-5.1)
[2020-12-14] MEDS ORDERED: ALBUTEROL SO4 2.5/IPRATROPIUM 0.5 INH SOL 3 ML VIAL.NEB. NEB ONE (07:27)
[2020-12-14] MEDS ORDERED: INSULIN REGULAR HUMAN 100 UNITS/ML *VIAL IVPUSH ONE (07:27)
[2020-12-14] MEDS ORDERED: CALCIUM GLUCONATE 10% - 1,000 MG/10 ML VIAL IVPB ONE (07:29)
[2020-12-14 08:31] LABS: ARTERIAL BLD GAS O2 SATURATION 91.1 mmHg (95-98); ARTERIAL BLOOD GAS BASE EXCESS -3.2 mmol/L (-2-2); ARTERIAL BLOOD GAS PO2 59.5 mmHg (80-100); ARTERIAL BLOOD GAS pH 7.401 (7.350-7.450)
[2020-12-14 08:32] LABS: ALLENS TEST POSITIVE
[2020-12-14 08:33] LABS: VENT RATE 22
[2020-12-14] MEDS: DEXAMETHASONE SOD PHOSPHATE 4 MG/1 ML VIAL IVPUSH SCH ×2 (09:53→22:32)
[2020-12-14] MEDS: SODIUM ZIRCONIUM CYCLOSILICATE (LOKELMA) 5 GM PACKET PO SCH (09:54)
[2020-12-14] MEDS: amLODIPine BESYLATE 5 MG TABLET (FP) PO SCH (09:54)
[2020-12-14] MEDS: ENOXAPARIN NA (PORCINE) 40 MG/0.4 ML DISP.SYRIN SQ SCH (09:54)
[2020-12-14] MEDS: ESCITALOPRAM OXALATE 10 MG TABLET PO SCH (09:54)
[2020-12-14] MEDS: ASCORBIC ACID 500 MG TABLET (FP) PO SCH ×2 (09:55→22:33)
[2020-12-14] MEDS: AMINO ACIDS 4.25%/D5W 1,000 ML IV SCH (09:55)
[2020-12-14] MEDS: CHOLECALCIFEROL (VIT D3) 1,000 UNIT (25 MCG) TABLET PO SCH (09:55)
[2020-12-14] MEDS: BUDESONIDE/FORMETEROL FUMARATE 80/4.5 mcg INHALER IH SCH (09:55)
[2020-12-14 11:42] LABS: ANISOCYTOSIS 1+; MACROCYTOSIS 0; PLATELET ESTIMATE NORMAL; TOXIC GRANULATION 1+
[2020-12-14] MEDS ORDERED: RAPID SEQUENCE INTUBATION KIT NR ONE (12:16)
[2020-12-14] MEDS: FAMOTIDINE 20 MG TABLET PO SCH (12:27)
[2020-12-14] MEDS ORDERED: AMINO ACIDS 4.25%/D5W 1,000 ML IV SCH (13:00)
[2020-12-14] MEDS ORDERED: MULTIVIT INJ. ADULT COMBO WITH VIT K 1 COMBO 10 ML VIAL IV SCH (13:00)
[2020-12-14] MEDS ORDERED: PROPOFOL 200 MG/20 ML VIAL IVPUSH ONE (14:33)
[2020-12-14] MEDS ORDERED: ROCURONIUM BROMIDE 50 MG/5 ML VIAL IV ONE (14:33)
[2020-12-14] MEDS ORDERED: MIDAZOLAM 100 MG/100 ML MG IVPB ONE (14:38)
[2020-12-14] MEDS: FENTANYL NS IVPB 500 MCG/100 ML BAG IVPB SCH ×2 (14:45→23:15)
[2020-12-14] MEDS: MIDAZOLAM 100 MG in SODIUM CHLORIDE 100 ML IVPB SCH (14:45)
[2020-12-14] MEDS: VECURONIUM BROMIDE 100 MG/100 ML BAG IVPB SCH (15:05)
[2020-12-14] MEDS ORDERED: PT OWN MED DRAWER 7, Y5N ONE (15:43)
[2020-12-14 18:03] LABS: ARTERIAL BLD GAS O2 SATURATION 88.6 mmHg (95-98); ARTERIAL BLOOD GAS BASE EXCESS -9.1 mmol/L (-2-2); ARTERIAL BLOOD GAS PO2 73.8 mmHg (80-100)
[2020-12-14 18:04] LABS: ALLENS TEST POSITIVE
[2020-12-14 18:05] LABS: VENT MODE AC; VENT RATE 22
[2020-12-14 18:07] LABS: ARTERIAL BLOOD GAS pH 7.107 (7.350-7.450)
[2020-12-14] MEDS ORDERED: NOREPINEPHRINE NS PREMIX 16,000 MCG/500 ML BAG IVPB ONE (20:02)
[2020-12-14] MEDS ORDERED: NOREPINEPHRINE BITARTRATE 16,000 MCG in SODIUM CHLORIDE 484 ML IV SCH (20:15)
[2020-12-14 20:17] LABS: ARTERIAL BLD GAS O2 SATURATION 76.9 mmHg (95-98); ARTERIAL BLOOD GAS BASE EXCESS -10.3 mmol/L (-2-2); ARTERIAL BLOOD GAS PO2 58.9 mmHg (80-100)
[2020-12-14 20:18] LABS: ALLENS TEST POSITIVE
[2020-12-14 20:19] LABS: VENT MODE A/C; VENT RATE 22
[2020-12-14 20:21] LABS: ARTERIAL BLOOD GAS pH 7.052 (7.350-7.450)
[2020-12-14] MEDS: FAMOTIDINE 20 MG/50 ML IVPB 20 MG/50 ML MG IVPB SCH (22:33)
[2020-12-14] MEDS ORDERED: PHENYLEPHRINE NS PREMIX 50,000 MCG/500 ML BAG CVP SCH (23:45)
[2020-12-15] MEDS ORDERED: LACTATED RINGERS SOLUTION 1000 ML INFUS.BAG IV ONE (00:55)
[2020-12-15] MEDS ORDERED: LACTATED RINGERS SOLUTION 1,000 ML/1,000 ML INFUS.BAG IV SCH (02:00)
[2020-12-15 02:32] LABS: ARTERIAL BLD GAS O2 SATURATION 77.6 mmHg (95-98); ARTERIAL BLOOD GAS BASE EXCESS -17.7 mmol/L (-2-2); ARTERIAL BLOOD GAS PO2 68.1 mmHg (80-100)
[2020-12-15] MEDS: INSULIN SLIDING SCALE (NOVOLOG) 1 VIAL SQ SCH ×3 (02:32→11:56)
[2020-12-15] MEDS: CHLORHEXIDINE GLUCONATE 4% CLEANSER FOR DECOLONIZATION TP SCH (02:32)
[2020-12-15] MEDS: INSULIN (LEVEMIR) 100 UNITS/ML UNITS SQ SCH ×2 (02:32→07:05)
[2020-12-15 02:33] LABS: ALLENS TEST POSITIVE; VENT MODE A/C
[2020-12-15] MEDS: BUDESONIDE/FORMETEROL FUMARATE 80/4.5 mcg INHALER IH SCH ×2 (02:33→10:15)
[2020-12-15 02:34] LABS: VENT RATE 25
[2020-12-15 02:35] LABS: ARTERIAL BLOOD GAS pH 6.914 (7.350-7.450)
[2020-12-15] MEDS ORDERED: SODIUM BICARBONATE 8.4% 50 MEQ/50 ML DISP.SYRIN IVPUSH ONE ×3 (02:48→11:30)
[2020-12-15] MEDS ORDERED: MIDAZOLAM 100 MG/100 ML MG IVPB ONE (05:23)
[2020-12-15 05:56] LABS: ARTERIAL BLD GAS O2 SATURATION 69.4 mmHg (95-98); ARTERIAL BLOOD GAS BASE EXCESS -17.4 mmol/L (-2-2); ARTERIAL BLOOD GAS PO2 54.7 mmHg (80-100)
[2020-12-15 05:58] LABS: ALLENS TEST POSITIVE
[2020-12-15 05:59] LABS: ARTERIAL BLOOD GAS pH 6.981 (7.350-7.450); VENT MODE A/C; VENT RATE 32
[2020-12-15] MEDS: MIDAZOLAM 100 MG in SODIUM CHLORIDE 100 ML IVPB SCH (07:06)
[2020-12-15] MEDS: FENTANYL NS IVPB 500 MCG/100 ML BAG IVPB SCH (07:06)
[2020-12-15] MEDS: VECURONIUM BROMIDE 100 MG/100 ML BAG IVPB SCH (07:06)
[2020-12-15 07:51] LABS: BASO % 0.3 % (0-2.0); EOS % 0.6 % (0-4.5); HEMOGLOBIN 11.7 GM/dL (10.7-15.3); LYMPH % 7.9 % (8-40); MCHC 31.5 g/dl (32.0-36.0); MEAN PLT VOLUME 10.6 fl (7.5-11.1); MONO % 4.9 % (3.8-10.2); NEUT % 86.3 % (42.8-82.8); PLATELET COUNT 106 K/MM3 (134-434); RBC 3.89 M/mm3 (3.60-5.2); RDW 16.1 % (11.6-15.6); WHITE BLOOD COUNT 6.6 K/mm3 (4.0-10.0)
[2020-12-15 07:53] LABS: CHLORIDE 106 mmol/L (98-107); SODIUM 140 mmol/L (136-145)
[2020-12-15 07:56] LABS: CO2 20 mmol/L (21-32); GLUCOSE,RANDOM 156 mg/dL (74-106); MAGNESIUM 2.6 mg/dL (1.8-2.4)
[2020-12-15 07:59] LABS: CREATININE 4.2 mg/dL (0.55-1.3)
[2020-12-15 08:00] LABS: BILIRUBIN,TOTAL 0.9 mg/dL (0.2-1); TOT PROT 5.3 g/dl (6.4-8.2)
[2020-12-15 08:01] LABS: ALK PHOS 182 U/L (45-117)
[2020-12-15 09:22] LABS: ALBUMIN 1.9 g/dl (3.4-5.0); ANION GAP 14 MMOL/L (8-16); CALCIUM 7.5 mg/dL (8.5-10.1); LDH > 4000 U/L (84-246); SGOT/AST 5642 U/L (15-37); SGPT/ALT 1784 U/L (13-61)
[2020-12-15] MEDS: SODIUM ZIRCONIUM CYCLOSILICATE (LOKELMA) 5 GM PACKET PO SCH (10:13)
[2020-12-15] MEDS: ENOXAPARIN NA (PORCINE) 40 MG/0.4 ML DISP.SYRIN SQ SCH (10:13)
[2020-12-15] MEDS: ASCORBIC ACID 500 MG TABLET (FP) PO SCH (10:14)
[2020-12-15] MEDS: DEXAMETHASONE SOD PHOSPHATE 4 MG/1 ML VIAL IVPUSH SCH (10:14)
[2020-12-15] MEDS: FAMOTIDINE 20 MG/50 ML IVPB 20 MG/50 ML MG IVPB SCH (10:15)
[2020-12-15] MEDS: CHOLECALCIFEROL (VIT D3) 1,000 UNIT (25 MCG) TABLET PO SCH (10:16)
[2020-12-15] MEDS ORDERED: VASOPRESSIN 20 UNITS/ML VIAL IV ONE ×2 (10:21→15:45)
[2020-12-15] MEDS ORDERED: VASOPRESSIN 40 UNITS in SODIUM CHLORIDE 98 ML IVPB SCH ×2 (10:30→11:00)
[2020-12-15 10:38] LABS: ANISOCYTOSIS 0; MACROCYTOSIS 0; OVALOCYTE 1+; PLATELET ESTIMATE DECREASED
[2020-12-15 11:10] LABS: BLOOD UREA NITROGEN 128.8 mg/dL (7-18)
[2020-12-15 11:12] LABS: POTASSIUM 7.2 mmol/L (3.5-5.1)
[2020-12-15] MEDS ORDERED: INSULIN REGULAR HUMAN 100 UNITS/ML *VIAL IVPUSH ONE (11:30)
[2020-12-15] MEDS ORDERED: SODIUM BICARBONATE 8.4% 50 MEQ/50 ML VIAL ONE (14:48)
[2020-12-15] MEDS ORDERED: EPINEPHrine 1:10,000 (P-F SYR) 1 MG/10 ML DISP.SYRIN ONE (14:49)
[2020-12-15 18:16] VITALS: TEMP 98.2
[2020-12-15 18:18] VITALS: BP 58/42; PULSE 50
== END 2020-12-15 18:00 | disposition expired | DRG 208 ==
LOC: JER 17:25 → JERBED 18:54 → J6WEST-2 11-30 20:13 → JICU 12-07 18:56
PROVIDERS: ADMIT Internal Medicine; ATTEND Internal Medicine
PROC: 5A1945Z Respiratory Ventilation, 24-96 Consecutive Hours (ICD-10-PCS; principal; 2020-12-14)
PROC: 0BH17EZ Insertion of Endotracheal Airway into Trachea, Via Natural or Artificial Opening (ICD-10-PCS; 2020-12-14)
PROC: 0W9930Z Drainage of Right Pleural Cavity with Drainage Device, Percutaneous Approach (ICD-10-PCS; 2020-12-14)
PROC: 05HM33Z Insertion of Infusion Device into Right Internal Jugular Vein, Percutaneous Approach (ICD-10-PCS; 2020-12-14)
PROC: B543ZZA Ultrasonography of Right Jugular Veins, Guidance (ICD-10-PCS; 2020-12-14)
PROC: 5A12012 Performance of Cardiac Output, Single, Manual (ICD-10-PCS; 2020-12-15)
DX: U07.1 COVID-19 (principal); J96.01 Acute respiratory failure with hypoxia; J12.82 Pneumonia due to coronavirus disease 2019; N17.9 Acute kidney failure, unspecified; J93.9 Pneumothorax, unspecified; E11.65 Type 2 diabetes mellitus with hyperglycemia; E78.5 Hyperlipidemia, unspecified; K21.9 Gastro-esophageal reflux disease without esophagitis; E87.5 Hyperkalemia; E66.9 Obesity, unspecified; Z68.32 Body mass index [BMI] 32.0-32.9, adult; I95.9 Hypotension, unspecified; I12.9 Hypertensive chronic kidney disease with stage 1 through stage 4 chronic kidney disease, or unspecified chronic kidney disease; N18.9 Chronic kidney disease, unspecified; D72.829 Elevated white blood cell count, unspecified; E86.0 Dehydration; I16.0 Hypertensive urgency; D69.6 Thrombocytopenia, unspecified
CPT/HCPCS: 31500; 36415; 36600; 71045-TC-FY; 80048; 80053; 80074; 81003; 82728; 82803; 82962; 83036; 83605; 83615; 83735; 83930; 83935; 84100; 84132; 84484; 85025; 85027; 85379; 85610; 85730; 86140; 86480; 86769; 87040; 87086; 87804; 93005; 93010; 94002; 94640; 94660; 99285-25; C9803; J1100; J1644; J3262; U0003